=== PATIENT | female | born 1950 | race Caucasian/White ===

== ENCOUNTER → 2023-10-14 11:30 | Outpatient (REF) | payer BC, SELFPAY | LOC: RAD 11:30 | PROVIDERS: ATTENDING PHYSICIAN Surgery; FAMILY PHYSICIAN Family Medicine | DX: Z87.442 Personal history of urinary calculi (principal) | CPT/HCPCS: 76775 ==

== ENCOUNTER → 2024-06-06 14:29 | Outpatient (REF) | payer BC, SELFPAY | LOC: HWRAD 14:29 | PROVIDERS: ATTENDING PHYSICIAN Surgery; FAMILY PHYSICIAN Family Medicine | DX: Z87.442 Personal history of urinary calculi (principal) | CPT/HCPCS: 76770 ==

== ENCOUNTER → 2024-08-01 12:33 | Outpatient (REF) | payer BC, SELFPAY | LOC: HWRAD 12:33 | PROVIDERS: ATTENDING PHYSICIAN Surgery; FAMILY PHYSICIAN Family Medicine | DX: Z87.442 Personal history of urinary calculi (principal) | CPT/HCPCS: 74176 ==

== ENCOUNTER 2024-08-14 15:25 | Emergency (ER) | payer BC, SELFPAY ==
[2024-08-14 15:35] VITALS: BP 91/59
[2024-08-14 16:00] VITALS: BP 97/77
[2024-08-14 16:01] VITALS: BMI 25.3
[2024-08-14 16:03] LABS: % Basophils 0.4 % (0-2); % Eosinophils 1.1 % (0-6); % Immature Granulocytes 0.4 % (0-0.5); % Monocytes 7.3 % (1.7-9.3); % Neutrophils 66.8 % (42.2-75.2); Absolute Eosinophils 0.1 10^3/uL (0-0.7); Absolute Lymphocytes 2.2 10^3/uL (1.2-3.4); Absolute Monocytes 0.7 10^3/uL (0.1-0.6); Hemoglobin 12.9 g/dL (12.0-16.0); Mean Corp Hgb Conc. 33.1 g/dL (33.0-37.0); Mean Corpuscular Volume 93.8 fL (81.0-99.0); Mean Platelet Volume 10.6 fL (7.4-10.4); Nucleated Red Blood Cells % 0 %; Platelet Count 268 10^3/uL (130-400); Red Blood Cell Count 4.16 10^6/uL (4.20-5.40); Red Cell Dist. Width 15.3 % (11.5-14.5)
[2024-08-14 16:10] LABS: ALT (SGPT) 15 U/L (0-35); AST (SGOT) 24 U/L (14-36); Albumin 4.3 g/dl (3.5-5.0); Alkaline Phosphatase 58 U/L (38-126); Blood Urea Nitrogen 43 mg/dl (7-17); Calcium 10.6 mg/dl (8.4-10.2); Carbon Dioxide 21 mmol/L (22-30); Chloride 110 mmol/L (98-107); Estimated Creatinine Clearance 27 ml/min; Glucose 124 mg/dl (70-99); Potassium 3.8 mmol/L (3.5-5.1); Sodium 141 mmol/L (135-145); eGFR 29.38
[2024-08-14] MEDS: NSS 1000 IV (16:12)
[2024-08-14 16:17] LABS: INR 1.05; PT 14.2 Sec (11.4-14.6)
--- NOTE | 2024-08-14 16:39 | ED.GENMED ---
History of Present Illness
General
Chief Complaint: Vaginal Bleeding
Source: patient
Exam Limitations: none
Time Seen by Provider: 08/14/24 16:07
Nursing documentation reviewed up to this point in time: agreed with
History of Present Illness
History of Present Illness:
74-year-old female very pleasant presents with vaginal bleeding onset a few weeks ago mild, then proceeded to become more heavy after she was started on Eliquis for left total knee replacement minimal pain, is filling up a toilet with bleeding, saw
her urologist had a cystoscopy, and ultrasound told that she was not bleeding from her urinary tract per se, previously seen by a curing room worker, scheduled to have a biopsy but never completed, she never been never had a gynecologic surgery,
has been off Eliquis, was changed to aspirin, bleeding stopped for 5 days, no return, she actually been off aspirin for about 10 days she says, saw differ curing room worker today, apparently was unable to have a complete exam due to heavy bleeding the
question of a polyp? Referred to the ER for evaluation here mental status is clear, blood pressure is a bit low
Past History
Past History
ED Past Medical History: Other (An acute anemia requiring iron infusions)
ED Past Surgical History: Other (Paraesophageal hernia repair); Negative Gynecological
Social History
Tobacco: Non-smoker
Alcohol: Occasional
Drug: None
Living: with family
Employment: Retired
Family History
Family History: Other (She has a mother who had a stroke in her 50s.)
Phy Exam
Physical Exam
Physical Exam:
Physical Exam
General: no apparent distress, not acutely ill
Neck: Lips are slightly dry looks
Heart: Tachycardia
Lungs: no acute respiratory distress. clear bilaterally
Abdomen: Minimal suprapubic tender
Neuro: alert and oriented. no focal neurological deficits
Skin: no rash
Psychiatric: well kept. interactive and cooperative
Extremities: no edema.
Course
Orders/Labs/Results
Orders:
Orders
08/14/24 15:46
Complete Blood Count/With Diff Urgent
Comprehensive Metabolic Panel Urgent
Prothrombin Time Urgent
08/14/24 15:47
Type+Screen Urgent
08/14/24 16:09
0.9% Sodium Chloride 1000 ml [Nss] 1,000 ml IV BOLUS
08/14/24 16:24
US Pelvis W Transvag Combined Urgent
Reason For Exam: bleeding
08/14/24 16:38
Electrocardiogram (*1) Urgent
Reason for Study: Shortness of Breath
EKG- Treatment ONCE
Abnormal Lab Results
08/14/24
15:46
RBC 4.16 L 10^6/uL
(4.20-5.40)
RDW 15.3 H %
(11.5-14.5)
MPV 10.6 H fL
(7.4-10.4)
Absolute Monos (auto) 0.7 H 10^3/uL
(0.1-0.6)
Chloride 110 H mmol/L
(98-107)
Carbon Dioxide 21 L mmol/L
(22-30)
BUN 43 H mg/dl
(7-17)
Creatinine 1.8 H mg/dL
(0.6-1.0)
Glucose 124 H mg/dl
(70-99)
Calcium 10.6 H mg/dl
(8.4-10.2)
08/14/24 15:46
08/14/24 15:46
Vital Signs
Initial and Last Documented VS:
Initial Vital Signs
Temp Pulse Resp BP Pulse Ox
98.2 F 115 18 91/59 97
08/14/24 15:35 08/14/24 15:35 08/14/24 15:35 08/14/24 15:35 08/14/24 15:35
Last Documented Vital Signs
Temp Pulse Resp BP Pulse Ox
98.2 F 87 28 97/77 95
08/14/24 15:35 08/14/24 16:00 08/14/24 16:00 08/14/24 16:00 08/14/24 16:03
MDM/Problems Addressed
Differential Diagnosis Includes:
Gynecologic malignancy, GI malignancy, bleeding secondary to anticoagulation
MDM/Problems Addressed:
Vaginal bleeding
Chronic conditions affecting care:
Question of a premalignant issue recently, details are unclear
*Radiology
Radiology exam reviewed: radiology read reviewed
*Pulse Oximetry
Patient hypoxic: no
*[employer] Coordinator Interpretation
Rate: normal
Interpretation: normal
Heart Rate: 78
Rhythm: sinus
*Critical Care Note
Total Time (30-74mins, 75-104mins- exclusive of procedures): Not Applicable
Update Note
Update Note:
Update subacute onset of bleeding apparently worsened with anticoagulation improved off anticoagulation but recurred on aspirin, reportedly had quite a bit of bleeding in the curing room worker office, initially had 1 to get a CAT scan and an ultrasound
creatinine is elevated we will start volume resuscitation, get an ultrasound on-call gynecology for the practice has been notified
8 PM, ultrasound report noted message sent to gynecology on-call
Reviewed with Dr. Leahy who evaluated the patient she will be set up for an outpatient biopsy on with Dr. Foy
ED Attending Note
-
Portions of this chart may have been created with voice recognition software.� Occasional wrong word or��sound alike� substitutions may have occurred due to the inherent limitations of voice recognition software.
Discharge Plan
Departure
Patient Disposition: Home (Routine Discharge)
Date of Disposition: 08/14/24
Time of Disposition: 21:13
Patient with high blood pressure during this ER visit?: No
Condition: Good
Discharge Problem:
Abnormal vaginal bleeding
Prescriptions:
No Action
omeprazole 40 mg Capsule,Delayed Release(Dr/Ec)
40 mg PO DAILY
acetaminophen 500 mg Tablet
1,000 mg PO Q6H PRN (Reason: pain)
diltiazem HCl 120 mg Capsule,Ext.Rel 24h Degradable
120 mg PO DAILY
rosuvastatin 20 mg Tablet
20 mg PO DAILY
aspirin 81 mg Tablet,Chewable
81 mg PO DAILY
docusate sodium [Stool Softener] 100 mg Tablet
100 mg PO DAILY
polyethylene glycol 3350 [Miralax] 17 gram/dose powder
4 g PO DAILY Qty: 119 0RF
Rx Instructions:
start light laxative such as miralax in AM 09/09/22, if no BM. continue daily to avoid constipation. hold if loose stools
ondansetron [ondansetron] 4 mg tablet,disintegrating
4 mg PO Q8HPRN PRN (Reason: nausea/vomiting) Qty: 10 0RF
hydromorphone [Dilaudid] 2 mg tablet
2 mg PO Q4H PRN (Reason: moderate to severe pain) Qty: 10 0RF
simethicone 80 mg Tablet,Chewable
80 mg PO TIDPRN PRN (Reason: bloating/gas) Qty: 0 0RF
Referrals:
Reed Catalan Jr., DO [Family Provider] -
Activity Restrictions/Additional Instructions:
Follow-up with [facility]
You are tentatively scheduled to have a biopsy on
Interventions
Interventions:
*Risk Screen - Suicide Last Done: 08/14/24 15:37
*General Assessment Last Done: 08/14/24 15:37
*Neglect/Abuse Screening Last Done: 08/14/24 15:37
*ED COVID-19 Vaccine History Last Done: 08/14/24 15:37
ED-Female Genitourinary Assessment Last Done: 08/14/24 16:03
Discharge Date and Time
Print Language: KINYARWANDA
[2024-08-14 17:00] VITALS: BP 128/89
[2024-08-14 21:22] VITALS: BP 150/78
== END 2024-08-14 21:48 | disposition home or self-care (01) ==
LOC: EMR 15:25
PROVIDERS: Student in an Organized Health Care Education/Training Program; EMERGENCY PHYSICIAN Emergency Medicine; FAMILY PHYSICIAN Family Medicine
DX: N93.9 Abnormal uterine and vaginal bleeding, unspecified (principal); E78.00 Pure hypercholesterolemia, unspecified; I48.91 Unspecified atrial fibrillation; Z79.01 Long term (current) use of anticoagulants; Z82.3 Family history of stroke; Z87.440 Personal history of urinary (tract) infections; Z88.0 Allergy status to penicillin; Z88.5 Allergy status to narcotic agent; Z96.659 Presence of unspecified artificial knee joint
CPT/HCPCS: 99284; 96360; 76830; 76856; 80053; 85025; 85610; 86850; 86900; 86901; 93005

== ENCOUNTER 2024-08-16 06:24 | Day surgery (SDC) | payer BC, SELFPAY ==
[2024-08-16] VITALS (10 sets, daily range): BP systolic 108–150; BP diastolic 71–95; BMI 24.5
[2024-08-16] MEDS: NORMOSOL-R/PLASMALYTE-A 1000 IV (11:42)
[2024-08-16] MEDS: EMEND 40 MG PO (11:52)
[2024-08-16 11:55] LABS: Hematocrit 37.5 % (37.0-47.0); Hemoglobin 12.4 g/dL (12.0-16.0)
--- NOTE | 2024-08-16 13:22 | OR.RPT ---
Operative Report
Operative Report
Procedure date: 08/16/2024
Procedure: Exam under anesthesia, biopsy of cervical mass
Surgeon: Danii
Anesthesia: General
EBL: 25mL
Findings:
- Normal appearing external genitalia. Very narrow introitus and vaginal canal
- Gush bright red bleeding as soon as Thao retractor placed in the vagina. After clearing the blood, friable, necrotic mass from what appears to be the cervix. Unable to visualize the cervix or cervical os so Pap smear, hysteroscopy and D&C were not
able to be performed. A piece of the mass came out with the gush of blood and it was sent to pathology
- Patient was monitored for 10 minutes after removing instruments from the vagina and there was minimal bleeding
Pathology:
- Biopsy of cervical mass
Complications: none
Urine output: 25mL
Indication: Patient is a 74yo G0 who presents for scheduled exam under anesthesia, possible biopsy of cervical mass, Pap smear, hysteroscopy, and D&C. Patient has been having postmenopausal bleeding since the end of June. She will have intermittent
large gushes of blood that fill the toilet and then will stop. She has been noticing this has been happening about every week. She had a knee replacement at the end of May and was on Eliquis, but stopped when these episodes kept happening. She
then was on Aspirin but also stopped this about a week ago. She was seen in the office and was sent to the Emergency Department because she had so much vaginal bleeding on exam. Pelvic ultrasound in the ED revealed a large cervical and lower uterine
segment mass. Patient was not able to tolerate an exam in the office so an exam under anesthesia was recommended for further evaluation. She did have an abnormal Pap smear in 2018 and did not have any follow up. Risks, benefits and alternatives
discussed and all questions answered. Patient was aware that the entire procedure might not be able to be performed depending on the findings of the exam under anesthesia.
Procedure: Patient was taken to operating room and placed under anesthesia. She was positioned in the dorsal lithotomy position with Ajit type stirrups. She was prepped and draped in the normal sterile fashion. Time out was performed. Straight cath
was performed yielding 20cc of clear yellow urine. Thao retractors were placed in the anterior and posterior aspects of the vagina. There was a large gush of blood with placement of the Thao retractors. After the blood was cleared, a friable
necrotic mass from what appears to be the cervix was visualized. The cervix and cervical os were not able to be visualized. A piece of the mass fell off with the bleeding from placement of the Thao retractors. This was sent to pathology for
evaluation. All instruments were removed from the vagina. The patient was monitored for at least 10 minutes and there was very minimal vaginal bleeding. She was awakened from anesthesia and taken to PACU in stable condition. Counts were correct.
Findings and procedure were discussed with the patient and her sister and detail.
== END 2024-08-16 14:40 | disposition home or self-care (01) ==
LOC: SDS 06:24
PROVIDERS: ATTENDING PHYSICIAN Student in an Organized Health Care Education/Training Program
DX: C53.9 Malignant neoplasm of cervix uteri, unspecified (principal); N95.0 Postmenopausal bleeding
CPT/HCPCS: 57410; 88305; 85014; 85018; 86850; 86900; 86901; 88313; 88341; 88342; 88360

== ENCOUNTER → 2024-09-07 16:23 | Outpatient (REF) | payer BC, SELFPAY | LOC: RAD 16:23 | PROVIDERS: ATTENDING PHYSICIAN Obstetrics & Gynecology Gynecologic Oncology; FAMILY PHYSICIAN Family Medicine | DX: C53.1 Malignant neoplasm of exocervix (principal); I26.09 Other pulmonary embolism with acute cor pulmonale; D50.9 Iron deficiency anemia, unspecified; C54.1 Malignant neoplasm of endometrium | CPT/HCPCS: 71250; 74176 ==

== ENCOUNTER 2024-09-11 06:32 | Day surgery (SDC) | payer BC, SELFPAY ==
[2024-09-10 10:08] VITALS: BMI 25.1
[2024-09-10 10:44] LABS: % Basophils 0.7 % (0-2); % Eosinophils 2.7 % (0-6); % Immature Granulocytes 0.2 % (0-0.5); % Lymphocytes 23.4 % (20.5-51.1); % Monocytes 9.9 % (1.7-9.3); % Neutrophils 63.1 % (42.2-75.2); Absolute Eosinophils 0.2 10^3/uL (0-0.7); Absolute Lymphocytes 1.3 10^3/uL (1.2-3.4); Absolute Monocytes 0.6 10^3/uL (0.1-0.6); Absolute Neutrophils 3.6 10^3/uL (1.4-6.5); Hematocrit 36.2 % (37.0-47.0); Hemoglobin 11.6 g/dL (12.0-16.0); Mean Corpuscular Hgb 30.9 pg (27.0-31.0); Mean Corpuscular Volume 96.3 fL (81.0-99.0); Nucleated Red Blood Cells % 0 %; Platelet Count 277 10^3/uL (130-400); Red Blood Cell Count 3.76 10^6/uL (4.20-5.40); Red Cell Dist. Width 13.6 % (11.5-14.5); White Blood Cell Count 5.7 10^3/uL (4.8-10.8)
[2024-09-10 13:57] LABS: Blood Urea Nitrogen 34 mg/dl (7-17); Calcium 10.1 mg/dl (8.4-10.2); Carbon Dioxide 24 mmol/L (22-30); Chloride 111 mmol/L (98-107); Estimated Creatinine Clearance 35 ml/min; Glucose 93 mg/dl (70-99); Potassium 4.3 mmol/L (3.5-5.1); Sodium 141 mmol/L (135-145); eGFR 39.73
--- NOTE | 2024-09-10 14:44 | PTCARENOTE ---
Abnormal Creatinine on 09/10/24. Brigitte at Dr. Pennington's office aware.
--- NOTE | 2024-09-10 16:47 | W.CON.GYNONC ---
Addendum entered and electronically signed by Kike Pennington MD 09/11/24 11:39:
Date of this consultation is September 11, 2024 and this document serves as the preoperative history and physical
Original Note:
Chief Complaint
-
cervix mass
History of Present Illness
74�year�old�G0�white�female,�referred�to�me�for�diagnosis�of�malignancy�on�a�cervical�mass Patient�had�presented�with�postmenopausal�bleeding�in�March,�cervix�could�not�be�visualized�in�the�office�because�of�bleeding,�prior
to�her�knee�surgery�patient�started�having�bleeding�again,�she�was�treated�with�UTI�she�had�a�successful�knee�replacement�and�has
been�on�Eliquis�in�the�interim.�She�has�had�episodes�of�gushing�bljanina,�last�Pap�smear�was�in�2017.�She�was�taken�to�the�operating
room�for�an�exam�under�anesthesia.�Ultrasound�of�the�pelvis�performed�Ma�shows�there�is�a�solid�mass�in�the�region�of
the�cervix�and�lower�uterine�segment,�portion�of�the�uterus�which�is�posterior�to�this�contains�endometrium�with�a�stripe�at�3.2�mm,
there�is�significant�enlargement�of�cervix�and�lower�uterine�segment�compared�to�the�prior�studies.�The�solid�mass�involving�cervix
and�uterus�measures�8.3�x�4.9�x�5.2�cm.�A�noncontrast�CT�of�abdomen�and�pelvis�had�been�performed�which�reveals�bilateral nonobstructing�renal�calculi�up�to�6�mm�in�the�lower�pole�of�the�left�kidney,�liver�spleen�adrenal�glands�and�pancreas�are
unremarkable�there�is�no�enlarged�lymph�nodes.�Bowel�was�described�without�any�evidence�of�obstruction.�There�was�a�4�cm calcified�uterine�fibroid�commented�upon.
Patient�underwent�a�cervical�mass�biopsy�May�2,�the�operative�reports�suggest�that�the�external�genitalia�including�anus
urethra�and�vulva�are�normal.�The�vaginal�introitus�is�normal.�After�blood�was�cleared�from�the�vagina�necrotic�mass�was�present�and
therefore�he�D&C�hysteroscopy�could�not�be�performed�a�piece�of�the�mass�came�out�with�the�gush�of�blood�which�was�sent�for
pathology.�Biopsy�reveals�high�grade�poorly�differentiated�carcinoma.�Primary�sites�may�include�endocervix�or�endometrium.�Tumor is�PAX8�weak�positive,�ER�weakly�positive,�CK7�focal�positive.
pap done by me shows, AGC, positive HR HPV
Drug Script�Date Qty Rfls Instructions
Crestor�20�mg�tablet 09/25/2021 0 1�p.o.�q.�day
DILT�XR�120�mg�capsule,�extended�release 09/25/2021 0 1�p.o.�q.�day
famotidine�20�mg�tablet 12/25/2021 0 1�p.o.�q.�day lorazepam�0.5�mg�tablet 04/17/2021 0 prn
omeprazole�40�mg�capsule,delayed�release 06/25/2022 0 1�p.o.�q.�day
ondansetron�4�mg�disintegrating�tablet 04/17/2021 0 1�p.o.�twice�a�day�(BID)
Tylenol�325�mg�capsule
Past Medical History
Arthritis
AFIB
Kidney stones
Surgical History
Breast augmentation
Hernia repair
Thumb surgery
Knee replacement
Cervical biopsy
Social�History Patient�denies�ever�using�tobacco. Social�use�of�alcohol. Denies�any�illicit�drug�use. Occupational�Status:�Current:�Executive�Pediatric Nurse�. Patient�has�not�had�any�occupational�exposure. Marital�Status:�Patient�is�/.
Gynecological�History Patient�reports�0�pregnancies. Patient�Reported�Level�of�Pain Pain:�0���No�pain.
Medical History
Allergies
Allergies reflect when allergies were last updated in [employer].
codeine Allergy (Verified 09/04/24 11:11)
Nausea / Vomiting
crab Allergy (Verified 09/04/24 11:11)
Hives
oxycodone HCl (From Percocet) Allergy (Verified 09/04/24 11:11)
Rash
Penicillins Allergy (Verified 09/04/24 11:11)
Rash
Physical Exam
Physical Exam
Pelvic Examination:
Clamper present
The examination today was limited because patient cannot flex her left knee and was unable to get her legs in stirrups.
External normal labia, urethra, anus.
Vagina: Introitus is narrowed due to nulliparity, the lower vagina has normal mucosa. Upper vagina is filled with necrotic friable tumor
Cervix: Is replaced with a necrotic friable tumor that extends from sidewall to sidewall, 8 cm at least encroaching on all vaginal
fornices.
Uterus: Enlarged overall with posterior firm calcified myoma, not mobile.
Adnexa: I am unable to appreciate any adnexal masses
RVE: no masses or nodularity tumor is relatively fixed to the pelvic sidewall bilaterally
General: Well developed, well nourished patient. In no acute distress.
Neck: No thyromegaly. No cervical lymphadenopathy.
Lungs: Clear to auscultation. Good air movement bilaterally.
Cardiac: Regular rate. Regular rhythm. No murmurs appreciated.
Right Breast: No masses or dimpling. No nipple discharge.
Left Breast: No masses or dimpling. No nipple discharge.
Abdomen: Abdomen is soft. Non�tender to palpation. Non�distended.
Extremities: No edema.
Hematologic/Lymphatic: No palpable lymphadenopathy.
Musculoskeletal: Limited range of motion involving left knee due to recent knee replacement. Strength and Tone are normal.
Skin:Non�jaundiced. No petechia. No purpura.
Neurologic: Speech is fluent. Normal gait and station. Cranial nerves intact.
Results
-
09/10/24 10:21
09/10/24 10:21
Comp. Metabolic Panel (14)�-FinalOrdered by:�Justin Hebert Source:�Blood
Glucose 89 mg/dL 70-99 [facility]
BUN 29High mg/dL 8-27 [facility]
Creat 1.46High mg/dL 0.57-1.00 [facility]
eGFR 38Low mL/min/1.73 >59 [facility]
BUN Creat Ratio 20 12-28 [facility]
Sodium 143 mmol/L 134-144 [facility]
Potassium 4.1 mmol/L 3.5-5.2 [facility]
Chloride 108High mmol/L 96-106 [facility]
CO2 20 mmol/L 20-29 [facility]
Calcium 9.9 mg/dL 8.7-10.3 [facility]
Total Protein 6.6 g/dL 6.0-8.5 [facility]
Albumin 4.1 g/dL 3.8-4.8 [facility]
Globulin 2.5 g/dL 1.5-4.5 [facility]
Total Bili 0.4 mg/dL 0.0-1.2 [facility]
Alk Phos 66 IU/L 44-121 [facility]
AST 18 IU/L 0-40 [facility]
ALT 12 IU/L 0-32 [facility]
Iron and TIBC�-FinalOrdered by:�Justin Hebert Source:�Blood
Iron Bind.Cap.(TIBC) 307 ug/dL 250-450 [facility]
UIBC 271() ug/dL 118-369 [facility]
IRON 36() ug/dL 27-139 [facility]
Iron Sat Percent 12Low() % 15-55 [facility]
Vitamin B12 and Folate�-FinalOrdered by:�Justin Hebert Source:�Blood
B12 369 pg/mL 232-1245 [facility]
Folate (Folic Acid), Serum 8.7 ng/mL >3.0 [facility]
A�serum�folate�concentration�of�less�than�3.1�ng/mL�is
considered�to�represent�clinical�deficiency.
Prothrombin Time (PT)�-FinalOrdered by:�Justin Hebert Source:�Blood
INR 1.1 0.9-1.2 [facility]
���������������Reference�interval�is�for�non-anticoagulated�patients.
��������������������������������������������������������������������.
���������������Suggested�INR�therapeutic�range�for�Vitamin�K
���������������antagonist�therapy:
������������������Standard�Dose�(moderate�intensity
���������������������������������therapeutic�range):�������2.0�-�3.0
������������������Higher�intensity�therapeutic�range�������2.5�-�3.5
ProTime 11.6 sec 9.1-12.0 [facility]
CEA�-FinalOrdered by:�Justin Hebert Source:�Blood
CEA 431.0High ng/mL 0.0-4.7 [facility]
��������������������������������������������Nonsmokers����������<3.9
��������������������������������������������Smokers�������������<5.6
��������������������������������������������������������������������.
���������������[facility]ostics�Electrochemiluminescence�Immunoassay
���������������(ECLIA)
��������������������������������������������������������������������.
���������������Values�obtained�with�different�assay�methods�or�kits
���������������cannot�be�used�interchangeably.��Results�cannot�be
���������������interpreted�as�absolute�evidence�of�the�presence�or
���������������absence�of�malignant�disease.
CA 19-9�-FinalOrdered by:�Justin Hebert Source:�Blood
CA19_9 240High U/mL 0-35 [facility]�Diagnostics�Electrochemiluminescence�Immunoassay�(ECLIA)
���������������������������������������������������������������������.
Values�obtained�with�different�assay�methods�or�kits�cannot�be
used�interchangeably.��Results�cannot�be�interpreted�as�absolute
evidence�of�the�presence�or�absence�of�malignant�disease.
Cancer Antigen (CA) 125�-FinalOrdered by:�Justin Hebert Source:�Blood
CA125 26.1 U/mL 0.0-38.1 [facility]�Diagnostics�Electrochemiluminescence�Immunoassay�(ECLIA)
���������������������������������������������������������������������.
Values�obtained�with�different�assay�methods�or�kits�cannot�be
used�interchangeably.��Results�cannot�be�interpreted�as�absolute
evidence�of�the�presence�or�absence�of�malignant�disease.
PTT, Activated�-FinalOrdered by:�Justin Hebert Source:�Blood
aPTT 24 sec 24-33 [facility]
This�test�has�not�been�validated�for�monitoring�unfractionated�heparin
therapy.�aPTT-based�therapeutic�ranges�for�unfractionated�heparin
therapy�have�not�been�established.�For�general�guidelines�on
Heparin�monitoring,�refer�to�the�[facility]�Directory�of�Services.
TSH reflex to T4F�-FinalOrdered by:�Justin Hebert Source:�Blood
TSH 2.540() uIU/mL 0.450-4.500 [facility]
LDH�-FinalOrdered by:�Justin Hebert Source:�Blood
LDH 202 IU/L 119-226 [facility]
Ferritin�-FinalOrdered by:�Justin Hebert Source:�Blood
Ferritin 193High() ng/mL 15-150 [facility]
Impression / Plan
-
This�patient�has�a�large�mass�arising�from�either�rib�prolapse�of�the�uterus�expanding�the�cervical�canal�or�a�mass�that�is�replacing
the�cervix�altogether.�Initial�diagnosis�based�on�tissue�that�fell�during�an�examination�shows�poorly�differentiated�carcinoma�but�the exact�nature�is�unclear.�I
�am�going�to�suggest�that�we�perform�some�initial�blood�test�and�get�it�CT�chest�abdomen�and�pelvis�as well�as�a�PET/CT�for�initial�staging.�
I�will�schedule�her�for�exam�under�anesthesia�with�a�better�evaluation�of�the�extent�of�tumor�and obtaining�more�viable�tissue�and�hopefully�debulking�the�area�that�is�projecting�in�the�vagina.�
She�is�also�referred�to�medical�oncology�and�radiation�oncology At�this�time�based�on�my�limited�exam�in�the�office�I�do�not�feel�that�she�is�operable�and�most�likely�will�be�treated�with�systemic therapy�and�radiation.
She�is�currently�on�Eliquis�because�of�recent�knee�surgery�and�is�taking�it�on�a�prophylactic�dose�to�prevent�VTE,�I�recommend continuation�of�this�specially�in�light�of�the�fact�that�she�has�a�prior�history�of�pulmonary�embolism.
I�did�not�go�into�a�lot�of�details�about�treatment�because�I�do�not�have�a�exact�source�of�the�tumor. As�part�of�evaluation�today�I�used�a�spatula�to�get�a�Pap�smear�from�superficial�aspects�of�the�tumor�and�hopefully�and�HPV�testing as�well
Patient�is�concerned�about�excepting�any�treatment�because�she�lives�alone�and�does�not�have�a�lot�of�support�and�probably�would benefit�from�social�work�consult
[2024-09-11] VITALS (14 sets, daily range): BP systolic 118–137; BP diastolic 73–91; BMI 25.1
[2024-09-11] MEDS: NEURONTIN 300 MG PO (09:05)
[2024-09-11] MEDS: CELEBREX 200 MG PO (09:05)
[2024-09-11] MEDS: TYLENOL 1000 MG PO (09:05)
[2024-09-11] MEDS: HEPARIN 5000 UNITS SC (09:06)
[2024-09-11] MEDS: NORMOSOL-R/PLASMALYTE-A 1000 IV (09:25)
--- NOTE | 2024-09-11 11:34 | OR.RPT ---
Operative Report
Operative Report
Date of Procedure: 09/11/2024
Primary Surgeon: Kike Pennington
Assisting Surgeon: Chela Fonseca PA-C
Pre-op Diagnosis: Cervical cancer
Post-op Diagnosis: Same pending final pathology
Procedure Performed:
Exam under anesthesia with rectovaginal examination
Biopsy of cervical mass endocervical mass (LEEP)
Biopsies of anterior posterior and left vaginal fornices
Diagnostic cystoscopy
Anesthesia Type: General, LMA intubation
Specimen / Cultures: Cervical mass, endocervical biopsy, anterior and posterior vaginal fornix biopsy, left vaginal fornix biopsy, urine for cytology
Estimated Blood Loss: 100 cc
Complications: None
Operative Findings: Examination under anesthesia reveals an exophytic tumor arising from the cervix filling the upper vagina approximately 8 cm there is extension of tumor to anterior left and posterior vaginal fornices. There is bilateral
parametrial involvement but sidewalls are free. The bladder is not involved bilateral ureteral orifices is seen, trigone of the bladder is elevated secondary to the mass. Rectum is free of any disease and the mucosa is intact and normal. Based on
clinical examination she has at least stage IIIb cervical cancer
Procedure in detail: This patient was taken to the operating room and placed in supine position the patient was positioned in lithotomy position using yellowfin stirrups specifically because her left knee is status post replacement recently and we
needed to ensure that she was in a comfortable position. Next general anesthesia and LMA intubation was performed, she was prepped and draped in the vagina upper thighs and perineum. Following this timeout procedure was carried out she received 2
g of Ancef. Cystoscopy was performed with 30 degree cystoscope and there was essentially no evidence of abnormality involving the entire bladder. Trigone as well as bilateral ureteral orifices were visualized and there was no evidence of tumor. A
sample of urine was collected and submitted to pathology for cytology evaluation. Next Thao retractors were used to visualize the tumor in the vagina. I was able to examine her and note that there is an 8 cm exophytic tumor protruding into the
vagina and involving vaginal fornices as described above. I used a 15 mm loop to essentially shave off the majority of the tumor that was projecting into the vaginal canal and this was submitted as this cervical mass additional biopsies were
performed from anterior and posterior and left vaginal fornices as well as endocervix and these tissues were submitted to pathology. I used a rollerball cautery at 50 W to cauterize the entire remainder of the tumor. Monsel solution was applied to
the residual tumor. I use 1 g of Inés and sprayed that over the tumor. I then packed the vagina with the vaginal packing which was covered with Monsel solution. The patient was awakened and returned back to recovery room stable condition counts
of labs instruments and needle was correct x 2. I was present and scrubbed for entire procedure as dictated above
Disposition: To PACU stable awake and extubated
[2024-09-11] MEDS: TYLENOL 650 MG PO (14:37)
== END 2024-09-11 14:55 | disposition home or self-care (01) ==
LOC: SDS 06:32
PROVIDERS: ATTENDING PHYSICIAN Obstetrics & Gynecology Gynecologic Oncology; FAMILY PHYSICIAN Family Medicine
DX: C53.9 Malignant neoplasm of cervix uteri, unspecified (principal)
CPT/HCPCS: 57522; 11102; 88305; 88307; 36415; 80048; 85025; 86850; 86900; 86901; 88112; 88313; 88341; 88342; 88360